=== PATIENT | male | born 1965 | race African-American/Black ===

== ENCOUNTER 2023-04-01 08:51 | Emergency (ER) | payer SELFPAY ==
[~2023-04-01] VITALS: Ht 172.7 cm; Wt 68.0 kg
[2023-04-01 09:01] VITALS: BP 115/73; PULSE 71; RESP 20; TEMP 98.7; O2SAT 100
[2023-04-01] MEDS ORDERED: LIDOCAINE 5% PATCH TOP SCH (15:00)
[2023-04-01] MEDS ORDERED: KETOROLAC 30MG/ML VIAL IM ONE (15:00)
== END 2023-04-01 16:38 | disposition left against medical advice (07) ==
LOC: ER 09:10
DX: M54.50 Low back pain, unspecified (principal); Z53.21 Procedure and treatment not carried out due to patient leaving prior to being seen by health care provider
CPT/HCPCS: 99281; J1885

== ENCOUNTER 2023-07-30 07:43 | Emergency (ER) | payer MEDICAID ==
[~2023-07-30] VITALS: Ht 162.6 cm; Wt 59.0 kg
[2023-07-30 07:47] VITALS: BP 120/79; TEMP 98.2; O2SAT 100
[2023-07-30 07:50] VITALS: PULSE 85; RESP 16
[2023-07-30 09:10] LABS: BASOPHILS % 0.4 % (0.0-2.0); EOSINOPHILS % 0.4 % (0.0-5.0); HEMATOCRIT. 47.4 % (42.0-52.0); HEMOGLOBIN. 15.9 g/dL (14.0-18.0); LYMPHOCYTES % 25.2 % (20.0-50.0); MEAN CORPUSCULAR HEMOGLOBIN 31.7 pg (28.0-32.0); MEAN CORPUSCULAR HGB CONC 33.5 g/dL (31.0-37.0); MEAN CORPUSCULAR VOLUME 94.6 fL (80.0-94.0); MEAN PLATELET VOLUME 8.2 fl (7.4-10.4); MONOCYTES % 11.4 % (2.0-8.0); NEUTROPHILS % 62.6 % (40.0-76.0); PLATELET 183 x1000/uL (130-400); RED CELL DISTRIBUTION WIDTH 13.8 % (11.6-14.6); WHITE BLOOD COUNT 5.1 x1000/uL (4.5-11.0)
[2023-07-30 09:28] LABS: ALANINE AMINOTRANSFERASE 23 IU/L (10-49); ALBUMIN 4.8 g/dL (3.2-4.8); ASPARTATE AMINOTRANSFERASE 36 IU/L (<34); BILIRUBIN TOTAL 0.6 mg/dL (0.1-1.0); CALCIUM 9.8 mg/dL (8.7-10.4); CARBON DIOXIDE 26 mEq/L (21-32); CHLORIDE 104 mEq/L (98-107); CREATININE 1.2 mg/dL (0.6-1.3); GLUCOSE 94 mg/dL (70-105); POTASSIUM 4.3 mEq/L (3.5-5.1); PROTEIN TOTAL 7.6 g/dL (6.0-8.3); SODIUM 138 mEq/L (136-145); UREA NITROGEN BLOOD 12 mg/dL (9-23)
[2023-07-30] MEDS ORDERED: PROT40 MT (09:38)
== END 2023-07-30 11:05 | disposition home or self-care (01) ==
LOC: ER 07:43
DX: R61 Generalized hyperhidrosis (principal)
CPT/HCPCS: 36415; 80053; 85025; 99283